=== PATIENT | female | born 1970 | race African-American/Black ===

== ENCOUNTER 2017-12-16 08:59 | Emergency (ER) | payer OTHER ==
[2017-12-16] MEDS ORDERED: hydroCHLOROthiazide 25 MG TAB ONE (10:07)
[2017-12-16] MEDS ORDERED: LISINOPRIL 10 MG TAB ONE (10:07)
[2017-12-16] MEDS ORDERED: AMLODIPINE 5 MG TAB ONE (10:09)
--- NOTE | 2017-12-16 10:46 | EDPHYS ---
Physician Documentation [facility] Name: Bimal Espinal Age: 47 yrs Sex: Female : 1970 Arrival Date: 12/16/2017 Time: 08:59 Bed 6 Private MD: ED Physician Dominic Hallman HPI: 12/16 10:35 This 47 yrs old Black Female presents to ER via Ambulatory with complaints of Hives, wa Lips Swelling. 10:35 The patient presents with swelling, whelps, itching. c/o itching and whelps x 2 days. wa h/o grass and fish allergy. now noted lip swelling this AM. took benadryl last night. denies SOB or throat closure sensation. take amlodipine and HCTZ for BP. denies britney inhibitor ingestion. The problem is located in the lip swelling. Onset: The symptoms/episode began/occurred today, lip swelling today. itching and urticaria x 2 days. Duration: The symptoms are continuous, and are steadily getting worse. Modifying factors: The symptoms are alleviated by nothing, the symptoms are aggravated by nothing. Associated signs and symptoms: Pertinent positives: itching, redness and whelps of skin. Severity of symptoms: At their worst the symptoms were moderate, in the emergency department the symptoms are unchanged. The patient has experienced similar episodes in the past. The patient has not recently seen a physician. Historical: - Allergies: 09:13 Fish Containing Products; ss - Immunization history:: Adult Immunizations up to date. - Social history:: Smoking status: Patient/guardian denies using tobacco, never smoked, Patient/guardian denies using alcohol, street drugs. - Family history:: Mother has/had hypertension. - Hospitalizations: : No recent hospitalization is reported. ROS: 10:39 Constitutional: Negative for fever, chills, and weight loss, Eyes: Negative for injury, wa pain, redness, and discharge, Neck: Negative for injury, pain, and swelling, Cardiovascular: Negative for chest pain, palpitations, and edema, Respiratory: Negative for shortness of breath, cough, wheezing, and pleuritic chest pain, Abdomen/GI: Negative for abdominal pain, nausea, vomiting, diarrhea, and constipation, Back: Negative for injury and pain, : Negative for injury, bleeding, discharge, and swelling, MS/Extremity: Negative for injury and deformity, Neuro: Negative for headache, weakness, numbness, tingling, and seizure, Psych: Negative for depression, anxiety, suicide ideation, homicidal ideation, and hallucinations. 10:39 ENT: Positive for lip swelling. 10:39 Skin: Positive for rash, diffusely, itching, whelps. Exam: 10:40 Constitutional: This is a well developed, well nourished patient who is awake, alert, wa and in no acute distress. Head/Face: Normocephalic, atraumatic. Eyes: Pupils equal round and reactive to light, extra-ocular motions intact. Lids and lashes normal. Conjunctiva and sclera are non-icteric and not injected. Cornea within normal limits. Periorbital areas with no swelling, redness, or edema. Neck: Trachea midline, no thyromegaly or masses palpated, and no cervical lymphadenopathy. Supple, full range of motion without nuchal rigidity, or vertebral point tenderness. No Meningismus. Cardiovascular: Regular rate and rhythm with a normal S1 and S2. No gallops, murmurs, or rubs. Normal PMI, no JVD. No pulse deficits. Respiratory: Lungs have equal breath sounds bilaterally, clear to auscultation and percussion. No rales, rhonchi or wheezes noted. No increased work of breathing, no retractions or nasal flaring. Abdomen/GI: Soft, non-tender, with normal bowel sounds. No distension or tympany. No guarding or rebound. No evidence of tenderness throughout. Back: No spinal tenderness. No costovertebral tenderness. Full range of motion. MS/ Extremity: Pulses equal, no cyanosis. Neurovascular intact. Full, normal range of motion. Neuro: Awake and alert, GCS 15, oriented to person, place, time, and situation. Cranial nerves II-XII grossly intact. Motor strength 5/5 in all extremities. Sensory grossly intact. Cerebellar exam normal. Normal gait. 10:40 ENT: noted lower and upper lip swelling. upper worse than lower. throat clear. no redness or swelling. . 10:40 Skin: noted scattered urticaria. diffuse erythematous papules. Vital Signs: 09:13 BP 176 / 103; Pulse 72; Resp 16; Pulse Ox 100% on R/A; Pain 0/10; ss 09:28 Temp 98.1(O); hb 10:46 BP 151 / 95; Pulse 72; Resp 18; Pulse Ox 99% ; sv MDM: 09:12 Patient medically screened. wa 10:42 Differential diagnosis: will treat with meds for acute allergic reaction. will give own wa dose of BP meds as BP elevated. Data reviewed: vital signs, nurses notes. Response to treatment: the patient's symptoms have markedly improved after treatment. ED course: improved. noted working on her lap top. no distress. swelling significantly reduced. BP improved with amlodipine and HCTZ. will d/c home with prednisone burst. epi SQ prn per pen. 12/16 09:14 Order name: IV Saline Lock; Complete Time: wi 12/16 09:14 Order name: Cardiac monitoring; Complete Time: wi 12/16 09: Order name: Pulse Ox Monitoring; Complete Time: wi Administered Medications: : Drug: EPINEPHrine 1mg/mL 1:1,000 0.3 ml Route: Sub-Q; Site: right thigh; hb 10:00 Follow up: Response: No adverse reaction hb 09: Drug: NS 0.9% 1000 ml Route: IV; Rate: 1 bolus; Site: right antecubital; hb 10:20 Follow up: IV Status: Completed infusion hb : Drug: Benadryl 12.5 mg Route: IVP; Site: right antecubital; hb 10:00 Follow up: Response: No adverse reaction hb 09:27 Drug: Decadron - Dexamethasone 10 mg Route: IVP; Site: right antecubital; hb 10:00 Follow up: Response: No adverse reaction hb 10:11 Drug: Hydrochlorothiazide 12.5 mg Route: PO; hb 11:00 Follow up: Response: No adverse reaction hb 10:11 Drug: amLODIPine 10 mg Route: PO; hb 11:00 Follow up: Response: No adverse reaction hb Disposition: 12/16/17 10:45 Discharged to Home. Impression: Acute allergic reaction with angioedema. - Condition is Stable. - Prescriptions for Prednisone 20 mg Oral Tablet - take 2 tablet by ORAL route once daily for 5 days; 10 tablet. EpiPen 0.3 mg Injection auto- injector - inject 1 pen by INTRAMUSCULAR route as directed Inject into the outer portion of the thigh, through clothing if necessary. Indicated in the emergency treatment of allergic reactions; 1 Kit. - Medication Reconciliation Form, Thank You Letter, Antibiotic Education, Prescription Opioid Use form. - Follow up: Private Physician; When: As needed; Reason: Continuance of care. - Problem is new. - Symptoms have improved. - Notes: as discussed, use epipen in a severe allergic episode as described to you. call 911 immediately after using epipen. take prednisone as benadryl as discussed. do take your blood pressure medication daily without skipping doses as your blood pressure otherwise remain high. return here immediately for rapidly worsening concerns Signatures: Tracy Ferrari, RADHA RN Natacha Schaefer RN RN Dominic Hallman MD MD wi
--- NOTE | 2017-12-16 10:46 | ER ---
Nurse's Notes [facility] Name: Bimal Espinal Age: 47 yrs Sex: Female : 1970 Arrival Date: 12/16/2017 Time: 08:59 Bed 6 Private MD: Diagnosis: Acute allergic reaction with angioedema Presentation: 12/16 09:09 Presenting complaint: Patient states: itching all over body and hives that began 2 days ss ago and now lip and tongue swelling that began yesterday. Denies shortness of breath. Pt reports that she has struggled with allergic reactions most of her life. Transition of care: patient was not received from another setting of care. Onset: The symptoms/episode began/occurred 2 day(s) ago. Anaphylaxis evaluation, angioedema. Onset of symptoms was December 14, 2017. Care prior to arrival: None. 09:09 Method Of Arrival: Ambulatory ss 09:09 Acuity: URBAN 2 ss Historical: - Allergies: 09:13 Fish Containing Products; ss - Immunization history:: Adult Immunizations up to date. - Social history:: Smoking status: Patient/guardian denies using tobacco, never smoked, Patient/guardian denies using alcohol, street drugs. - Family history:: Mother has/had hypertension. - Hospitalizations: : No recent hospitalization is reported. Screenin:10 Abuse screen: Denies threats or abuse. Denies injuries from another. Nutritional hb screening: No deficits noted. 09:10 Tuberculosis screening: No symptoms or risk factors identified. Fall Risk None hb identified. Assessment: 09:05 General: Appears distressed, Behavior is cooperative, anxious. Pain: Denies pain. hb Neuro: Level of Consciousness is awake, alert, obeys commands, Oriented to person, place, time, situation. Cardiovascular: Capillary refill < 3 seconds Patient's skin is warm and dry. Respiratory: Airway is patent Trachea midline Respiratory effort is even, unlabored, Respiratory pattern is regular, symmetrical, Breath sounds are clear bilaterally. GI: No signs and/or symptoms were reported involving the gastrointestinal system. : No signs and/or symptoms were reported regarding the genitourinary system. EENT: severe upper and lower lip swelling noted. Derm: Skin is intact, is healthy with good turgor, Reports itching. Musculoskeletal: No signs and/or symptoms reported regarding the musculoskeletal system. 10:00 Reassessment: Patient appears in no apparent distress at this time. Patient and/or hb family updated on plan of care and expected duration. Pain level reassessed. Patient is alert, oriented x 3, equal unlabored respirations, skin warm/dry/pink. Moderate lip swelling noted, mild improvement from previous assessment. Pt denies SOB/worsening of symptoms. 11:00 Reassessment: Patient appears in no apparent distress at this time. Patient and/or hb family updated on plan of care and expected duration. Pain level reassessed. Patient is alert, oriented x 3, equal unlabored respirations, skin warm/dry/pink. Moderate swelling to lips noted Patient denies pain at this time. Patient states feeling better. Patient states symptoms have improved. Vital Signs: 09:13 BP 176 / 103; Pulse 72; Resp 16; Pulse Ox 100% on R/A; Pain 0/10; ss 09:28 Temp 98.1(O); hb 10:46 BP 151 / 95; Pulse 72; Resp 18; Pulse Ox 99% ; sv ED Course: 08:59 Patient arrived in ED. as 09:10 Patient has correct armband on for positive identification. Placed in gown. Bed in low hb position. Call light in reach. Side rails up X 1. 09:12 Dominic Hallman MD is Attending Physician. mt 09:13 Triage completed. ss 09:13 Arm band placed on right wrist. ss 09:18 Inserted saline lock: 20 gauge in right antecubital area, using aseptic technique. sv Flushed right antecubital with 5 ml normal saline. 09:25 Natacha Schaefer, RN is Primary Nurse. hb 11:00 No provider procedures requiring assistance completed. IV discontinued, intact, hb bleeding controlled, No redness/swelling at site. Pressure dressing applied. Administered Medications: 09:26 Drug: EPINEPHrine 1mg/mL 1:1,000 0.3 ml Route: Sub-Q; Site: right thigh; hb 10:00 Follow up: Response: No adverse reaction hb 09:27 Drug: NS 0.9% 1000 ml Route: IV; Rate: 1 bolus; Site: right antecubital; hb 10:20 Follow up: IV Status: Completed infusion hb 09:27 Drug: Benadryl 12.5 mg Route: IVP; Site: right antecubital; hb 10:00 Follow up: Response: No adverse reaction hb 09:27 Drug: Decadron - Dexamethasone 10 mg Route: IVP; Site: right antecubital; hb 10:00 Follow up: Response: No adverse reaction hb 10:11 Drug: Hydrochlorothiazide 12.5 mg Route: PO; hb 11:00 Follow up: Response: No adverse reaction hb 10:11 Drug: amLODIPine 10 mg Route: PO; hb 11:00 Follow up: Response: No adverse reaction hb Outcome: 10:45 Discharge ordered by . ricci 11:00 Discharged to home ambulatory. hb 11:00 Condition: stable 11:00 Discharge instructions given to patient, Instructed on discharge instructions, follow up and referral plans. medication usage, Demonstrated understanding of instructions, follow-up care, medications, Prescriptions given X 2. 11:15 Patient left the ED. Signatures: Clare Summers RN RADHA Daylin Wagner Shelby, RN RN Natacha Schaefer RN RN Dominic Hallman MD MD wa
== END 2017-12-16 11:15 | disposition home or self-care (01) ==
LOC: ER 08:59
DX: T78.3XXA Angioneurotic edema, initial encounter (principal); Z91.013 Allergy to seafood
CPT/HCPCS: 96361; 96372; 96374; 96375; 99283